=== PATIENT | male | born 1980 | race Hispanic/Latino ===

== ENCOUNTER 2024-07-17 21:52 | Emergency (ER) | payer SELFPAY ==
[2024-07-17 22:00] VITALS: BP 146/92
--- NOTE | 2024-07-17 22:06 | EDRN ---
Dr. Enriquez in triage room at this time.
--- NOTE | 2024-07-17 22:06 | EDRN ---
Security near by and Officer Lawn from PD outside room.
Patient denies wanting to be here at this time and wants to go home.
Officer Lawn stated that patient reached out to mobile hotline for help.
Officer Lawn stated that patient made no threatening statements of self harm to him. He would not be filing a 302.
--- NOTE | 2024-07-17 22:58 | ED.GENMED ---
History of Present Illness
General
Chief Complaint: Suicidal Ideation
Source: patient
Exam Limitations: none
Time Seen by Provider: 07/17/24 22:42
Nursing documentation reviewed up to this point in time: agreed with
History of Present Illness
History of Present Illness:
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 Patient was desponded earlier and called [employer], the suicide hotline. He allegedly told them that he was depressed and wanted help. He commented 'my family
will not miss me when I am gone'. He also allegedly told them that he was going to hang himself with a cord that he had in his hands. Please arrived at the scene of his home, where he lives with his ex-, and his children. He voluntarily came
to the emergency department. He did not give more of the story to police. He stated his reason for coming to [facility] was to speak with crisis. Upon arrival to the emergency department, patient was triaged. Patient stated he did not
want to see a medical doctor and rather wanted to talk to crisis to get resources for his depression and his thoughts. Patient was told that he needed to be triaged in the emergency department, and patient became very angry. He stated that he did
not need to see a medical doctor and rather was upset because she just wanted to talk to crisis. He denied being suicidal at this time. I spoke with police who did not hear any comments from the patient that would warrant a involuntary commitment.
They were unable to file a 302 based on the information and interaction they had with the patient. Officer Katherine, called his partner who did have conversation with patient's ex-. He states that that his partner did not have any further
information to 302 the patient. Crisis has met with the patient several times at this point. They also did not have grounds to 302 him based on his interactions with them here. At this point crisis went back to their office to gather outpatient
resources for the patient, which she requested. While they were there, the [employer] glass lat[employer] operator contacted them and stated that he was filling out a 302 on this patient due to the overt remarks he made on the phone. I discussed this with the patient and he
reluctantly agreed to stay to speak with telepsych. Patient was still agitated but more cooperative at this point. Patient spoke with telepsych who ultimately decided to uphold the 302 based on the comments in the wavering story that patient had
made with them. They were concerned that the patient had many inconsistencies and they felt that he needed 302 protection. At this point I agreed and upheld the 302. I spoke with patient after crisis told him of the news and he was in agreement
and 'wanted to get this over with '. He has been cooperative since.
Past History
Past History
ED Past Medical History: None; Negative Asthma, HTN, Hypercholesterolemia or NIDDM
ED Past Surgical History: None
Social History
Tobacco: Smoker
Alcohol: None
Personal:
Living: alone
Review of Systems
Review of Systems
Allergies reviewed?: Yes
Other source history: other (police)
All Other Systems: ROS reviewed and negative except as documented in HPI and ROS
Psychiatric: Reports suicidal (?)
Phy Exam
General Physical Exam
General Presentation: well appearing and no apparent distress
General age: appears stated age
General Skin: warm and dry
General Habitus: normal
General Mental: alert
General Hydration: appears well hydrated
Pulmonary Exam
Pulmonary Exam: no respiratory distress and no cough
Neurological Exam
Neurological Exam: alert and oriented x3
Musculoskeletal Exam
Musculoskeletal Exam: full ROM
Skin Exam
Skin Exam: normal color
Psychiatric Exam
Psychiatric Exam: agitated and anxious
Course
Orders/Labs/Results
Orders:
Orders
07/18/24 01:50
Urine Drug Abuse Screen Routine
07/18/24 03:47
COVID-19 Antigen Urgent
Source: Nasal Swab
07/18/24 08:03
PSYCHIATRY CONSULT Urgent
Consulting Provider: Vishnu Davis
Was physician already notified: Yes
Abnormal Lab Results
07/18/24
01:50
U Marijuana (THC) Screen Positive H
(Negative)
Vital Signs
Initial and Last Documented VS:
Initial Vital Signs
Temp Pulse Resp BP Pulse Ox
97.7 F 90 18 146/92 97
07/17/24 22:00 07/17/24 22:00 07/17/24 22:00 07/17/24 22:00 07/17/24 22:00
Last Documented Vital Signs
Temp Pulse Resp BP Pulse Ox
97.7 F 81 16 128/76 97
07/17/24 22:00 07/18/24 07:49 07/18/24 07:49 07/18/24 07:49 07/18/24 07:49
*Critical Care Note
Total Time (30-74mins, 75-104mins- exclusive of procedures): 35 (Critical care statement: A total of [35 minutes of critical care time was provided for this patient. This time is separate from time utilized to perform the aforementioned documented
procedures. Aggregate critical care time includes only time during which I was engaged in work directl)
Update Note
Update Note:
Patient was seen by telepsych during downtime. They interviewed him and determined that he was possibly a danger to himself. They recommended that he be placed on involuntary psychiatric hold. Based on the verbiage of the 302, patient's demeanor
in the emergency department, and the recommendation of the psychiatrist, I have agreed to uphold the 302.
ED Attending Note
-
Portions of this chart may have been created with voice recognition software.� Occasional wrong word or��sound alike� substitutions may have occurred due to the inherent limitations of voice recognition software.
Discharge Plan
Departure
Patient Disposition: Psych Facility
Date of Disposition: 07/18/24
Time of Disposition: 03:10
Condition: Good
Discharge Problem:
Suicidal ideation, Depression
Prescriptions:
No Action
escitalopram oxalate 20 MG tablet
20 mg PO DAILY
sulfamethoxazole-trimethoprim 1 TABLET tablet
1 tab PO BID Qty: 19 0RF
cephalexin 500 MG capsule
500 mg PO BID Qty: 19 0RF
Referrals:
NONE,* [Family Provider] -
Interventions
Interventions:
*Risk Screen - Suicide Last Done: 07/17/24 22:06
*General Assessment Last Done: 07/18/24 03:40
*Neglect/Abuse Screening Last Done: 07/18/24 00:01
ED- Fall Risk Assessment Last Done: 07/18/24 00:01
*ED COVID-19 Vaccine History Last Done: 07/18/24 00:01
*Nursing Disposition Last Done: 07/18/24 11:10
ED-Psychological Assessment Last Done: 07/18/24 00:01
Discharge Date and Time
Discharge Date/Time: 07/18/24 11:11
Print Language: VINCENTIAN
--- NOTE | 2024-07-18 03:07 | DOWNTIME ---
There was a [employer] Counter Clerk Downtime on 07/18/2024 from 0100 to 07/18/2024 at 0300. Downtime documentation of patient's care, including medication administrations, has been reconciled in the electronic record per guidelines. Refer to the
patient's paper chart under the miscellaneous tab to see printed paper medication records and downtime forms.
[2024-07-18 03:29] LABS: Amphetamines Negative (Negative); Barbiturates Negative (Negative); Benzodiazepines Negative (Negative); Buprenorphine Negative (Negative); Cocaine Negative (Negative); Marijuana Positive (Negative); Methadone Negative (Negative); Methamphetamines Negative (Negative); Opiates Negative (Negative); Phencyclidine Negative (Negative); Tricyclic Antidepressants Negative (Negative)
--- NOTE | 2024-07-18 03:50 | EDRN ---
Report received, introduced myself to patient and obtained vital signs, crisis spoke with him about going to a facility, gave patient a drink of water.
[2024-07-18 04:12] LABS: COVID-19 Antigen Negative (Negative)
[2024-07-18 07:49] VITALS: BP 128/76
== END 2024-07-18 11:11 ==
LOC: EMR 21:52
PROVIDERS: CONSULT PHYSICIAN Psychiatry & Neurology Psychiatry; EMERGENCY PHYSICIAN Student in an Organized Health Care Education/Training Program
DX: R45.851 Suicidal ideations (principal); F32.A Depression, unspecified; R45.1 Restlessness and agitation; Z65.3 Problems related to other legal circumstances; Z11.52 Encounter for screening for COVID-19; F17.200 Nicotine dependence, unspecified, uncomplicated; Z88.1 Allergy status to other antibiotic agents
CPT/HCPCS: 99291; 80306; 87811